=== PATIENT | female | born 1960 | race Caucasian/White ===

== ENCOUNTER → 2016-07-28 | Outpatient (CLI) | payer OTHER ==
--- NOTE | 2016-07-29 03:10 | REP ---
Clinical: Pain. Recent trauma. Technique: AP, lateral, bilateral oblique views of the right hand. Findings: Mild arthritic degenerative changes involving the interphalangeal joints include increase sclerosis with joint space narrowing and very early marginal spurring. No acute fracture or dislocation identified. Impression: Mild arthritic degenerative changes. No acute fracture or dislocation identified. Signed by Matthieu Tang MD 07/29/2016 03:02 A
== END ==
LOC: M WUC 08:32
PROVIDERS: ATTEND Physician Assistant
DX: M25.541 Pain in joints of right hand (principal)

== ENCOUNTER → 2017-12-07 | Outpatient (CLI) | payer OTHER | LOC: M CARPUL 15:26 | DX: I35.0 Nonrheumatic aortic (valve) stenosis (principal) | CPT/HCPCS: 93306 ==

== ENCOUNTER → 2017-12-09 | Outpatient (CLI) | payer OTHER | LOC: M RAD 14:21 | DX: Z12.31 Encounter for screening mammogram for malignant neoplasm of breast (principal) | CPT/HCPCS: 77067 ==

== ENCOUNTER → 2021-03-18 | Outpatient (CLI) | payer OTHER ==
--- NOTE | 2021-03-18 14:15 | REPMRS ---
Patient History The patient states she has not had a clinical breast exam in over a year. Family history of breast cancer at age 25 in maternal aunt, prostate cancer at age 64 in father. Tomosynthesis is performed. [place] breast density [facility] b[facility] Patient states no breast complaints today. Patient has signed MRS History Sheet. Digital Woman Screen Mammo: March 18, 2021 - Exam #: [id number] Bilateral CC and MLO view(s) were taken. Technologist: Jelly Sánchez, Technologist Prior study comparison: December 09, 2017, bilateral digital mammo screening bilat, performed at [facility]. December 25, 2015, left breast digital mammo diagnostic unilateral, performed at [facility]. FINDINGS: There are scattered fibroglandular densities. There has been no change in the appearance of the mammogram from the prior studies. There is a mild amount of residual fibroglandular tissue which is fairly symmetric. There is no interval development of dominant mass, architectural distortion, or clustered microcalcification suggestive of malignancy. Assessment: BI-RADS/ACR category 1 mammogram. Negative Mammogram. Recommendation Routine screening mammogram in 1 year (for women over age 40). This mammogram was interpreted with the aid of an FDA-approved computer-aided dectection system. Electronically Signed By: Harjit Figueroa MD 03/18/21 [id number]
--- NOTE | 2021-03-18 16:53 | REP ---
INDICATION: DENSE BREAST. COMPARISON: Mammogram today, left breast ultrasound 12/25/2015. TECHNIQUE: Real-time sonographic evaluation of entire bilateral breasts performed. FINDINGS: No cystic or solid nodule is seen in any portion of either breast. IMPRESSION: BIRADS/ACR category 1, negative whole breast ultrasound bilaterally. RECOMMENDATION: Annual screening. <Electronically signed by Harjit Figueroa > 03/18/21 [id number]
== END ==
LOC: M WHC 13:14
PROVIDERS: ATTEND Internal Medicine
DX: Z12.31 Encounter for screening mammogram for malignant neoplasm of breast (principal)

== ENCOUNTER → 2022-05-05 | Outpatient (CLI) | payer OTHER | LOC: M WHC 08:58 | PROVIDERS: ATTEND Internal Medicine | DX: Z12.31 Encounter for screening mammogram for malignant neoplasm of breast (principal) ==

== ENCOUNTER → 2023-05-26 | Outpatient (CLI) | payer OTHER | LOC: M WHC 12:25 | PROVIDERS: ATTEND Internal Medicine | DX: Z12.31 Encounter for screening mammogram for malignant neoplasm of breast (principal) ==

== ENCOUNTER → 2024-06-08 | Outpatient (CLI) | payer OTHER | LOC: M WHC 12:38 | PROVIDERS: ATTEND Internal Medicine | DX: Z12.31 Encounter for screening mammogram for malignant neoplasm of breast (principal) ==